=== PATIENT | female | born 1945 | race Caucasian/White ===

== ENCOUNTER 2016-07-06 10:37 | Emergency (ER) | payer OTHER ==
[~2016-07-06] VITALS: Ht 162.6 cm; Wt 87.0 kg
[2016-07-06 10:44] VITALS: BP 135/82; PULSE 74; RESP 15; TEMP 98; O2SAT 97
[2016-07-06] MEDS ORDERED: ACETAMINOPHEN/HYDROcodone 325 MG/5 MG TAB PO ONE (11:15)
--- NOTE | 2016-07-06 11:59 | PD ---
HPI Chief Complaint: Fall Time Seen by Provider: 11:54 Travel History International Travel<30 days: No Contact w/Intl Traveler<30days: No Traveled to known affect area: No History of Present Illness HPI 71-year-old female that presents to the ED for evaluation of fall last night. Per patient she fell from stairs. From her right side. Per patient she is not sure what she did to her knee but the knee is the one that is giving her the most issues. She does complain of some right hip and elbow pain. Tonight he her hands consciousness. Takes no blood thinners. Per patient the pain is mostly on the knee and posterior difficulty ambulating. Per patient she cannot really bear weight on the knee. Flexing it makes her worse. Denies any back or neck pain. Pain per patient is severe 8 out of 10. More with movement and with weightbearing. She has not seen anybody for this. She did not passed out. She was brought here by daughter for evaluation. No numbness, tingling, weakness. No allergies to medication. She has not taken anything for this. No blurry vision or double vision. Patient able to move the other joints without difficulty. No pain on the left side. No chest pain or shortness of breath. No abdominal pain. PFSH Past Medical History Medical History: Denies Significant Hx Diminished Hearing: No Immunizations Current: Yes Tetanus Vaccination: > 5 Years Influenza Vaccination: No ?: Not Past Surgical History Hysterectomy: Yes Social History Alcohol Use: No Tobacco Use: Yes Substance Use: No Allergies-Medications (Allergen,Severity, Reaction): Coded Allergies: No Known Allergies (Unverified , 07/06/16) Reported Meds & Prescriptions Reported Meds & Active Scripts Active Folding Walker/5" Wheels (Device) 1 Mis Mis 1 Ea .ROUTE DIRECTED Lortab (Hydrocodone-Acetaminophen) 5-325 Mg Tab 1 Tab PO Q6H PRN Diclofenac Sodium DR (Diclofenac Sodium) 75 Mg Tabdr 75 Mg PO BID PRN Review of Systems Except as stated in HPI: all other systems reviewed are Neg Physical Exam Narrative GENERAL: SKIN: Warm and dry. HEAD: Atraumatic. Normocephalic. EYES: Pupils equal and round. No scleral icterus. No injection or drainage. ENT: No nasal bleeding or discharge. Mucous membranes pink and moist. Tongue is midline. No uvula deviation. NECK: Trachea midline. No JVD. CARDIOVASCULAR: Regular rate and rhythm. No murmurs, S3, S4. RESPIRATORY: No accessory muscle use. Clear to auscultation. Breath sounds equal bilaterally. GASTROINTESTINAL: Abdomen soft, non-tender, nondistended. Hepatic and splenic margins not palpable. MUSCULOSKELETAL: Extremities without clubbing, cyanosis, or edema. No obvious deformities. Full range of motion of the left upper and lower extremity as well as the right upper extremity. Patient has some pain in the posterior aspect of the elbow but able to move fully. 2+ pulses bilaterally. Patient has pain with flexion of the right knee. Pain reproducible on the anterior aspect of the knee. Some swelling noted. Neurovascular intact. Some tenderness to palpation of the right hip but able to move it fully. NEUROLOGICAL: Awake and alert. No obvious cranial nerve deficits. Motor grossly within normal limits. Five out of 5 muscle strength in the arms and legs. Normal speech. PSYCHIATRIC: Appropriate mood and affect; insight and judgment normal. Data Data Last Documented VS Vital Signs Date Time Temp Pulse Resp B/P Pulse Ox O2 Delivery O2 Flow Rate FiO2 07/06/16 10:44 98.0 74 15 135/82 97 Orders Knee, Complete (4vws) (07/06/16 11:13) Ice/Cold Pack (07/06/16 11:13) Acetamin-Hydrocod 325-5 Mg ([place] 5-325 (07/06/16 11:15) Elbow, Complete (4 Vws) (07/06/16 11:22) Hip, Uni(Ap&Lat) W Ap Pelvis (07/06/16 11:22) Ice/Cold Pack (07/06/16 11:22) Splint Or Brace Apply/Monitor (07/06/16 12:36) MDM Medical Decision Making Medical Screen Exam Complete: Yes Emergency Medical Condition: Yes Medical Record Reviewed: Yes Interpretation(s) X-ray of the right knee, right hip as well as the right elbow shows arthritic changes but no sign of acute disease. X-ray of the right knee did show some joint effusion. Differential Diagnosis Fracture versus sprain versus strain versus bruise versus contusion Narrative Course 71-year-old male that presents to the ED for evaluation of fall. Patient was properly examined and was found to have signs and symptoms concerning for possible bony injuries. X-rays were done. X-rays were negative for this. Patient was reassured. At this time we'll put patient in a knee immobilizer and give patient a prescription for a walker. Patient was given information for the orthopedic surgeon on-call to have follow-up. Patient will be given a prescription for Lortab and diclofenac sodium. Apply ice or warm compresses as needed for pain. Close follow with PCP or orthopedic surgeon. See ED for worsening symptoms. Diagnosis Primary Impression: Right knee sprain Qualified Code: S83.91XA - Sprain of right knee, unspecified ligament, initial encounter Additional Impression: Multiple contusions Referrals: Miguel A Butler Jr., MD Patient Instructions: General Instructions, Narcotic given in the ED Additional Instructions: Take medications as prescribed. Follow-up with PCP or ortho. See ED for any worsening symptoms. Do not drink or drive while taking pain medication. Apply ice or heat as needed for pain Med/Other Pt SpecificInfo: Prescription(s) given Scripts Folding Walker/5" Wheels 1 Mis Mis #1 Ea .route As Directed Prov:Aman Boo MD 07/06/16 Hydrocodone-Acetaminophen (Lortab)5-325 Mg Tab1 Tab PO Q6H PRN (PAIN) #20 TAB Prov:Aman Boo MD 07/06/[address] 75 Mg Tabdr75 Mg PO BID PRN (PAIN SCALE 1 TO 10) #20 TAB Prov:Aman Boo MD 07/06/16 Disposition: 01 DISCHARGE HOME Condition: Stable Tommy Callejas Jul 06, 2016 11:59
[2016-07-06] MEDS ORDERED: DICL75TA PO (12:35)
[2016-07-06] MEDS ORDERED: HYDR-3533 PO (12:36)
[2016-07-06] MEDS ORDERED: MISC-274 (12:37)
--- NOTE | 2016-07-06 12:37 | RADHPO ---
EXAM DATE/TIME: 07/06/2016 11:28 [facility] COMPARISON: No previous studies available for comparison. INDICATIONS : Right hip pain post fall. MEDICAL HISTORY : None. SURGICAL HISTORY : None. ENCOUNTER: Initial ACUITY: 2 days PAIN SCORE: 4/10 LOCATION: Right hip. FINDINGS: 3 views right hip and pelvis. Bone alignment within normal limits. No evidence of fracture. Small ri ght osteophytes. No joint narrowing. CONCLUSION: No evidence of fracture. Minimal osteoarthritic findings of right hip. Coy Stephens MD on July 06, 2016 at 12:34 Board Certified Radiologist. This report was verified electronically.
--- NOTE | 2016-07-06 12:38 | RADHPO ---
EXAM DATE/TIME: 07/06/2016 11:29 [facility] COMPARISON: No previous studies available for comparison. INDICATIONS : Right elbow pain post fall. MEDICAL HISTORY : None. SURGICAL HISTORY : None. ENCOUNTER: Initial ACUITY: 2 days PAIN SCORE: 4/10 LOCATION: Right elbow. FINDINGS: 4 views of the right elbow. Bone alignment within normal limits. No evidence of fracture. No evidenc e of joint effusion. Small radial head osteophytes. 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 Coy Stephens MD on July 06, 2016 at 12:35 Board Certified Radiologist. This report was verified electronically.
--- NOTE | 2016-07-06 12:39 | RADHPO ---
EXAM DATE/TIME: 07/06/2016 11:31 [facility] COMPARISON: No previous studies available for comparison. INDICATIONS : Right knee pain post fall. MEDICAL HISTORY : None. SURGICAL HISTORY : None. ENCOUNTER: Initial ACUITY: 2 days PAIN SCORE: 6/10 LOCATION: Right knee. FINDINGS: 4 views of the right knee. Small tricompartmental osteophytes, most prominent at the medial compartme nt. Chondrocalcinosis of the medial meniscus. Minimal medial compartment narrowing. Bone alignment wi thin normal limits. No evidence of fracture. Small joint effusion. CONCLUSION: Osteoarthritic findings of the knee with mild medial compartment narrowing. Small joint effusion. Coy Stephens MD on July 06, 2016 at 12:36 Board Certified Radiologist. This report was verified electronically.
== END 2016-07-06 13:33 | disposition home or self-care (01) ==
LOC: PHEFT 10:37
DX: S83.91XA Sprain of unspecified site of right knee, initial encounter (principal); W10.9XXA Fall (on) (from) unspecified stairs and steps, initial encounter
CPT/HCPCS: 73080; 73502; 73564; 99283; L1830